=== PATIENT | male | born 1950 | race Caucasian/White ===

== ENCOUNTER 2023-03-20 19:02 | Emergency (ER) | payer OTHER ==
[2023-03-20] VITALS (15 sets, daily range): BP systolic 131–154; BP diastolic 71–86
[~2023-03-20] VITALS: Ht 182.9 cm; Wt 124.0 kg
[2023-03-20] MEDS ORDERED: ELIQUIS5 MG PO (19:43)
[2023-03-20] MEDS ORDERED: ATORVASTATIN CA40 MG PO (19:44)
[2023-03-20] MEDS ORDERED: FLEXERIL5 M1 PO (19:44)
[2023-03-20] MEDS ORDERED: CYMBALTA60 MG PO (19:45)
[2023-03-20] MEDS ORDERED: GABAPENTIN300 M2 PO (19:46)
[2023-03-20] MEDS ORDERED: AIMOVIG70 MG/ML SC (19:46)
[2023-03-20] MEDS ORDERED: LACOSAMIDE50 MG PO (19:47)
[2023-03-20] MEDS ORDERED: HYDROCHLOROT25 MG PO (19:47)
[2023-03-20] MEDS ORDERED: COZAAR25 MG PO (19:48)
[2023-03-20] MEDS ORDERED: METOPROLOL TART50 MG PO (19:48)
[2023-03-20] MEDS ORDERED: REMERON7.5 MG PO (19:48)
[2023-03-20] MEDS ORDERED: PROTONIX40 M2 PO (19:49)
[2023-03-20] MEDS ORDERED: TAMSULOSIN HCL0.4 MG PO (19:49)
[2023-03-20] MEDS ORDERED: ROBITUSSIN AC10 ML PO (19:50)
[2023-03-20] MEDS ORDERED: METHYLPRED4 MG PO (19:50)
[2023-03-20] MEDS ORDERED: ZITHROMAX250 MG PO (19:51)
[2023-03-20 20:56] LABS: BASO% 0.2 % (0-3); EOS% 0.5 % (0-8); HEMATOCRIT 38.2 % (39.0-50.0); HEMOGLOBIN 13.3 g/dl (14.0-18.0); IMMATURE GRANULOCYTES 0.7 % (0.0-5.0); LYMPH% 22.9 % (15-41); MEAN CELL VOLUME 91.6 fL CALC (80.0-100.0); MEAN CORPUSCULAR HGB 31.9 pG CALC (26.0-32.0); MEAN CORPUSCULAR HGB CONC 34.8 g/dL CAL (32.0-36.0); MONO% 7.8 % (2-13); NEUT# 5.85 thou/uL (1.82-7.42); NEUT% 67.9 % (42-76); RED BLOOD COUNT 4.17 mill/uL (4.70-6.10); RED CELL DISTRI WIDTH 11.6 % (11.5-15.5)
[2023-03-20 21:19] LABS: ALBUMIN 4.4 g/dL (3.2-5.0); ALKALINE PHOSPHATASE 74 u/l (38-126); ANION GAP 11 (6-22 (CALC)); BILIRUBIN, TOTAL 0.8 mg/dL (0.2-1.3); BUN 19 mg/dL (8-23); BUN/CREATININE RATIO 18 (12-20 (CALC)); CARBON DIOXIDE 27 mmol/l (22-30); CHLORIDE 95 mmol/l (95-108); CREATININE 1.1 mg/dL (0.7-1.3); GFR FOR AFR.AMER. > 60 ML/MIN (>=60 (CALC)); GFR OTHER RACES > 60 ML/MIN (>=60 (CALC)); POTASSIUM 3.9 mmol/l (3.5-5.1); SGOT/AST 32 u/l (19-48); SODIUM 129 mmol/l (137-146)
[2023-03-20] MEDS ORDERED: PREDNISONE20 MG PO (23:07)
[2023-03-20] MEDS ORDERED: MEDDOSEPAK PO (23:07)
[2023-03-20] MEDS ORDERED: BENZONATATE200 MG PO (23:07)
== END 2023-03-20 23:30 | disposition home or self-care (01) | DRG 203 ==
LOC: ED 19:02
PROVIDERS: Family Medicine
DX: J98.01 Acute bronchospasm (principal); I10 Essential (primary) hypertension; I48.91 Unspecified atrial fibrillation; Z79.01 Long term (current) use of anticoagulants; Z20.822 Contact with and (suspected) exposure to COVID-19